=== PATIENT | female | born 1990 | race Caucasian/White ===

== ENCOUNTER 2017-03-21 19:33 | Emergency (ER) | payer SELFPAY ==
[2017-03-21] MEDS ORDERED: Sodium Chloride 0.9% 1,000 ML IV ONE (19:41)
--- NOTE | 2017-03-21 20:03 | EDM.PDOC ---
ED HPI GENERAL MEDICAL PROBLEM - General Chief Complaint: Syncope Stated Complaint: 15 WEEKS /DIZZY Time Seen by Provider: 03/21/17 19:38 Source of Information: Reports: Patient History Limitations: Reports: No Limitations - History of Present Illness INITIAL COMMENTS - FREE TEXT/NARRATIVE: HISTORY AND PHYSICAL: History of present illness: [26-year-old female 15 weeks now status post episode of near syncope. Patient has felt lightheaded for several days. She denies active nausea or vomiting. She feels she is drinking an adequate amount of fluids. No chest pain or shortness of breath. She was shopping in [employer] today, lifted her child and got lightheaded -was forced to sit down. She did not actually lose consciousness but had an episode of near syncope. No prior history of syncope patient is not aware that she's never been anemic. She's never had any arrhythmia or cardiac problems. She otherwise feels well and again feels like she is adequately hydrated. No vomiting or diarrhea. No chest pain or shortness of breath. No pleuritic pain. Patient denies leg pain and swelling or asymmetry Review of systems: As per history of present illness and below otherwise all systems reviewed and negative. Past medical history: As per history of present illness and as reviewed below otherwise noncontributory. Surgical history: As per history of present illness and as reviewed below otherwise noncontributory. Social history: No reported history of drug or alcohol abuse. Family history: As per history of present illness and as reviewed below otherwise noncontributory. Physical exam: HEENT: Atraumatic, normocephalic, pupils reactive, negative for conjunctival pallor or scleral icterus, mucous membranes moist, throat clear, neck supple, nontender, trachea midline. Lungs: Clear to auscultation, breath sounds equal bilaterally, chest nontender. Heart: S1S2, regular, negative for clicks, rubs, or JVD. Abdomen: Soft, nondistended, nontender. Negative for masses or hepatosplenomegaly. Negative for costovertebral tenderness. Pelvis: Stable nontender. Genitourinary: Deferred. Rectal: Deferred. Extremities: Atraumatic, negative for cords or calf pain. Neurovascular unremarkable. Neuro: Awake, alert, oriented. Cranial nerves II through XII unremarkable. Cerebellum unremarkable. Motor and sensory unremarkable throughout. Exam nonfocal. Diagnostics: [EKG normal sinus rhythm at 74 no STEMI] Chest x-ray no acute disease interpreted by me Therapeutics: [IV fluids administered] Impression: [Near syncope ] Plan: [Signs and symptoms consistent with episode of near syncope, suspected at least contributory etiology of vasovagal trigger by lifting her large child. IV fluid bolus administered EKG and chest x-ray unremarkable labs pending. If workup unremarkable anticipate outpatient follow-up with PCP and [facility] doctor. Patient and significant other agree with this and strict return precautions will be given. Definitive disposition and diagnosis as appropriate pending reevaluation and review of above. - Related Data Allergies Allergy/AdvReac Type Severity Reaction Status Date / Time No Known Allergies Allergy Verified 03/21/17 19:44 Home Meds: Home Meds . [No Known Home Meds] 03/21/17 [History] Past Medical History - Past Health History Medical/Surgical History: Denies Medical/Surgical History [facility] History: Reports: Social & Family History - Family History Family Medical History: Noncontributory - Tobacco Use Smoking Status *Q: Never Smoker Second Hand Smoke Exposure: No - Caffeine Use Caffeine Use: Reports: Soda Caffeine Use Comment: 1drink/day - Recreational Drug Use Recreational Drug Use: No ED ROS GENERAL - Review of Systems Review Of Systems: See Below (History of present illness) ED EXAM, GENERAL - Physical Exam Exam: See Below (History of present illness) Course - Vital Signs Last Recorded V/S: Last Vital Signs Temp 37.1 C 03/21/17 21:26 Pulse 71 03/21/17 21:26 Resp 16 03/21/17 21:26 BP 99/57 L 03/21/17 21:26 Pulse Ox 100 03/21/17 21:26 - Orders/Labs/Meds Orders: Active Orders 24 hr Category Date Time Status EKG Documentation Completion [RC] STAT Care 03/21/17 19:42 Active Chest 1V Frontal [CR] Stat Exams 03/21/17 19:42 Taken Labs: Laboratory Tests 03/21/17 03/21/17 03/21/17 Range/Units 19:49 19:49 20:09 WBC (4.0-11.0) K/uL RBC (4.30-5.90) M/uL Hgb (12.0-16.0) g/dL Hct (36.0-46.0) % MCV (80.0-98.0) fL MCH (27.0-32.0) pg MCHC (31.0-37.0) g/dL RDW Std Deviation (28.0-62.0) fl RDW Coeff of Kenny (11.0-15.0) % Plt Count (150-400) K/uL MPV (7.40-12.00) fL Neut % (Auto) (48.0-80.0) % Lymph % (Auto) (16.0-40.0) % Caroline % (Auto) (0.0-15.0) % Eos % (Auto) (0.0-7.0) % Baso % (Auto) (0.0-1.5) % Neut # (Auto) (1.4-5.7) K/uL Lymph # (Auto) (0.6-2.4) K/uL Caroline # (Auto) (0.0-0.8) K/uL Eos # (Auto) (0.0-0.7) K/uL Baso # (Auto) (0.0-0.1) K/uL Nucleated RBC % /100WBC Nucleated RBCs # K/uL Sodium 136 (136-146) mmol/L Potassium 3.5 (3.5-5.1) mmol/L Chloride 105 (98-110) mmol/L Carbon Dioxide 22 (21-31) mmol/L BUN 11 (6.0-23.0) mg/dL Creatinine 0.6 (0.6-1.5) mg/dL Est Cr Clr Drug Dosing 161.59 mL/min Estimated GFR (MDRD) > 60.0 ml/min Glucose 96 (60-110) mg/dL Calcium 8.8 (8.8-10.8) mg/dL Troponin I (0.0-0.29) NG/ML Free T4 1.31 (0.7-1.48) ng/dL TSH 3rd Generation 0.01 L (0.47-5.0) uIU/mL Urine Color YELLOW Urine Appearance SLT CLOUDY Urine pH 5.5 (5.0-8.0) Ur Specific Stowe >= 1.030 (1.001-1.035) Urine Protein NEGATIVE (NEGATIVE) mg/dL Urine Glucose (UA) NEGATIVE (NEGATIVE) mg/dL Urine Ketones NEGATIVE (NEGATIVE) mg/dL Urine Occult Blood NEGATIVE (NEGATIVE) Urine Nitrite NEGATIVE (NEGATIVE) Urine Bilirubin NEGATIVE (NEGATIVE) Urine Urobilinogen 0.2 (<2.0) EU/dL Ur Leukocyte Esterase NEGATIVE (NEGATIVE) Urine RBC 0-2 (0-2/HPF) Urine WBC 0-4 (0-5/HPF) Ur Epithelial Cells MODERATE (NONE-FEW) Urine Bacteria FEW (NEGATIVE) Urine HCG, Qual POSITIVE (NEGATIVE) 03/21/17 03/21/17 Range/Units 20:09 20:09 WBC 8.96 (4.0-11.0) K/uL RBC 4.15 L (4.30-5.90) M/uL Hgb 12.3 (12.0-16.0) g/dL Hct 36.1 (36.0-46.0) % MCV 87.0 (80.0-98.0) fL MCH 29.6 (27.0-32.0) pg MCHC 34.1 (31.0-37.0) g/dL RDW Std Deviation 39.8 (28.0-62.0) fl RDW Coeff of Kenny 13 (11.0-15.0) % Plt Count 223 (150-400) K/uL MPV 10.00 (7.40-12.00) fL Neut % (Auto) 74.0 (48.0-80.0) % Lymph % (Auto) 20.6 (16.0-40.0) % Caroline % (Auto) 5.0 (0.0-15.0) % Eos % (Auto) 0.3 (0.0-7.0) % Baso % (Auto) 0.1 (0.0-1.5) % Neut # (Auto) 6.6 H (1.4-5.7) K/uL Lymph # (Auto) 1.9 (0.6-2.4) K/uL Caroline # (Auto) 0.5 (0.0-0.8) K/uL Eos # (Auto) 0.0 (0.0-0.7) K/uL Baso # (Auto) 0.0 (0.0-0.1) K/uL Nucleated RBC % 0.0 /100WBC Nucleated RBCs # 0 K/uL Sodium (136-146) mmol/L Potassium (3.5-5.1) mmol/L Chloride (98-110) mmol/L Carbon Dioxide (21-31) mmol/L BUN (6.0-23.0) mg/dL Creatinine (0.6-1.5) mg/dL Est Cr Clr Drug Dosing mL/min Estimated GFR (MDRD) ml/min Glucose (60-110) mg/dL Calcium (8.8-10.8) mg/dL Troponin I < 0.10 (0.0-0.29) NG/ML Free T4 (0.7-1.48) ng/dL TSH 3rd Generation (0.47-5.0) uIU/mL Urine Color Urine Appearance Urine pH (5.0-8.0) Ur Specific Stowe (1.001-1.035) Urine Protein (NEGATIVE) mg/dL Urine Glucose (UA) (NEGATIVE) mg/dL Urine Ketones (NEGATIVE) mg/dL Urine Occult Blood (NEGATIVE) Urine Nitrite (NEGATIVE) Urine Bilirubin (NEGATIVE) Urine Urobilinogen (<2.0) EU/dL Ur Leukocyte Esterase (NEGATIVE) Urine RBC (0-2/HPF) Urine WBC (0-5/HPF) Ur Epithelial Cells (NONE-FEW) Urine Bacteria (NEGATIVE) Urine HCG, Qual (NEGATIVE) Meds: Medications Discontinued Medications Generic Name Dose Route Start Last Admin Trade Name Freq PRN Reason Stop Dose Admin Sodium Chloride 1,000 mls @ 999 mls/hr 03/21/17 19:41 03/21/17 20:07 Normal Saline IV 03/21/17 20:41 999 mls/hr .Bolus ONE Administration Departure - Departure Time of Disposition: 21:45 Disposition: Home, Self-Care 01 Condition: Good Clinical Impression: Vasovagal near syncope, - Discharge Information Instructions: Near-Syncope, [id number] Referrals: PCP,None [Primary Care Provider] - Forms: ED Department Discharge Additional Instructions: It appears that your episode of nearly fainting is associated with being and a vasovagal event. This is not threatening and we've done a full workup to rule out any other contributory cause that might need to be addressed. As you're feeling well it is appropriate to have you follow-up with your in your [facility] doctor. Continue vitamins as previously prescribed and follow-up with your DrAryan tomorrow. Return immediately for new severe or worsening symptoms - My Orders Last 24 Hours: My Active Orders 03/21/17 19:42 EKG Documentation Completion [RC] STAT Chest 1V Frontal [CR] Stat - Assessment/Plan Last 24 Hours: My Active Orders 03/21/17 19:42 EKG Documentation Completion [RC] STAT Chest 1V Frontal [CR] Stat
[2017-03-21 20:50] LABS: CHLORIDE,CL 105 mmol/L (98-110); SODIUM,NA 136 mmol/L (136-146)
[2017-03-21 22:02] VITALS: BP 101/66
--- NOTE | 2017-03-24 11:19 | CR ---
EXAM DATE: 03/21/17 PATIENT'S AGE: 26 Patient: CRISTINA PALACIOS Facility: [place], [place] Site . Site : 1990 Study: XRay Chest [id number]/16/2017 8:38:02 PM Ordering Physician: Filipe Maurice Final Report: INDICATION: syncope, 15 wks TECHNIQUE: Chest 1 view. COMPARISON: None. FINDINGS: Cardiovascular and mediastinum: Heart size and vasculature are normal in caliber and appearance. Mediastinum is within normal limits. Lungs and pleural space: Lungs are clear. No sign of infiltrate or mass. No sign of pleural effusion. No pneumothorax. Bones and soft tissues: No significant findings. IMPRESSION: Unremarkable chest. Dictated by: Hipolito Mejia MD @ 03/21/2017 20:54:21 (Electronic Signature) Report Signed by Proxy. [facility]ITAL[facility]quiles
== END 2017-03-21 21:59 | disposition home or self-care (01) ==
LOC: MW.ED 19:33
DX: O99.89 Other specified diseases and conditions complicating pregnancy, childbirth and the puerperium (principal); R55 Syncope and collapse; Z3A.15 15 weeks gestation of pregnancy
CPT/HCPCS: 36415; 71010; 80048; 81001; 81025; 84439; 84443; 84484; 85025; 93005; 96360; 99284; J7040; 99282